=== PATIENT | male | born 1965 | race Caucasian/White ===

== ENCOUNTER 2024-07-05 12:20 | Emergency (ER) | payer BC, SELFPAY ==
[2024-07-05 12:20] VITALS: BMI 19.5
[2024-07-05 13:06] VITALS: BP 134/80; PULSE 86; RESP 20; TEMP 36.5; O2SAT 95
--- NOTE | 2024-07-05 13:22 | XR_ITS ---
Examination: Hand, left 3 views Technique: Hand AP, oblique, lateral 3 views Date and time of exam: July 05, 2024 1335 hrs. Indications: Dog bite today to the hand, hand pain Findings: No acute fracture No foreign body No dislocation Impression: No opaque foreign body
--- NOTE | 2024-07-05 14:28 | EDNOTE_ITS ---
Upper Extremity Injury RME/HPI General Chief Complaint: Hand/Wrist Problems Stated Complaint: LEFT HAND DOG BITE TODAY Time Seen by Provider: 07/05/24 13:02 Arrival date/time: 07/05/24 12:20 This is a 59-year-old male that comes into the hospital with complaints of a dog bite to the left hand. Patient has a large laceration to the dorsal hand and in between first and second digit. Patient reports tetanus shot is up-to-date patient reports a history of high blood pressure. Related Data Home Medications ?Medication ?Instructions ?Recorded ?Confirmed lisinopril 10 mg tablet 10 mg PO QDAY 12/30/17 03/20/24 montelukast 10 mg tablet 10 mg PO QPM 03/20/24 03/20/24 Previous Rx's ?Medication ?Instructions ?Recorded amoxicillin 875 mg-potassium 1 tab PO BID #14 tabs 07/05/24 clavulanate 125 mg tablet hydrocodone 5 mg-acetaminophen 325 1 tab PO Q8H PRN pain #10 tabs 07/05/24 mg tablet ibuprofen 800 mg tablet 800 mg PO Q6H PRN pain #14 tabs 07/05/24 Allergies Allergy/AdvReac Type Severity Reaction Status Date / Time No Known Allergies Allergy Verified 07/05/24 12:22 Review of Systems Review of Systems Systems Reviewed: All systems reviewed, normal except as documented Past Medical History Past Medical History CARDIAC: Positive Hypertension; Negative Cardiac Disorders or Congestive Heart Failure RESPIRATORY: Positive Asthma; Negative Chronic Obstructive Pulmonary Disease (COPD) GENITOURINARY: Negative Renal Disease ENDOCRINE: Negative Endocrine Disorders, Diabetes Mellitus Type 1 or Diabetes Mellitus Type 2 HEMATOLOGIC: Negative Sickle Cell Disease Social History SMOKING STATUS: Light (< 1 pack/day) SUBSTANCE USE: does not use Travel History EBOLA RISK: No ED Exam General General appearance: Present alert and in no apparent distress Head Head exam: Present atraumatic Eye Eye exam: Present normal appearance, PERRL and EOMI ENT ENT exam: Present normal exam, normal oropharynx and mucous membranes moist Neck Neck exam: Present normal inspection, full ROM and trachea midline Chest Chest inspection: Present normal inspection and symmetric chest wall rise Respiratory Respiratory exam: Present normal lung sounds bilaterally Cardiovascular Cardiovascular exam: Present regular rate and normal rhythm Abdominal Exam Abdominal exam: Present soft Extremities Exam Extremities exam: Present normal inspection and full ROM Back Exam Back exam: Present normal inspection and full ROM Neurological Exam Neurological exam: Present alert and oriented X3 Psychiatric Psychiatric exam: Present normal affect and normal mood Skin Skin exam: Present warm, dry and other (left hand laceration to dorsal hand and inbetween 1st and second digit. ) Course Quality Measures none Orders Category Date Time Status XR hand LT 2V Stat Exams 07/05/24 13:22 Completed Amoxicillin/Pot Clav 875 [Augmentin 875] Med 07/05/24 14:26 Discontinued 1 tab PO X1 ONE HYDROcodone*/APAP 5/325 [Slater 5/325] Med 07/05/24 14:26 Discontinued 1 tab PO X1 ONE Lidocaine 1% Pf 5 ml [Xylocaine 1% Pf 5 ml] Med 07/05/24 14:30 Discontinued 10 ml INFL X1 ONE Ondansetron Odt [Zofran Odt] Med 07/05/24 14:26 Discontinued 4 mg PO X1 ONE Vital Signs Vital signs: Vital Signs Temperature 97.7 F 07/05/24 13:06 Pulse Rate 86 07/05/24 13:06 Respiratory Rate 20 07/05/24 13:06 Blood Pressure 134/80 H 07/05/24 13:06 Pulse Oximetry (%) 95 07/05/24 13:06 Oxygen Delivery Method Room Air 07/05/24 13:06 Procedures -ED Laceration Laceration 1: Site: other (laceration to dorsal hand approx 3cm and small lac inbetween 1st and second digit) Side (If applicable): left Size (cm): 3 Description: irregular Depth: simple, single layer Local Anesthetic: lidocaine 1% Amount of anesthesia used (mL): 5 Pre-repair: wound explored and irrigated extensively Skin layer closed with: nylon Size (cm): 3-0 Number of sutures: 7 Technique: simple, interrupted Extremity Injury MDM Narrative MDM Narrative:: Pt wound cleansed and sutured. Pt tolerated procedure well. Patient data External records reviewed:: [facility] previous records Clinical information provided by:: patient Social determinants that could affect healthcare access:: none Patient has the following chronic illnesses:: none How is presenting disease/condition affected by chronic disease/condition?: no chronic disease Evaluation data The following diagnostics were reviewed and interpreted by me:: radiology exam(s) Lab and/or radiology exams considered but not ordered:: none Interpretation Summary: none Medications / Prescriptions Medications or Prescriptions considered but not ordered:: none Medication administrations:: Medication Administration History Discontinued Medications Hydrocodone Bitart/Acetaminophen (Hydrocodone/Apap 5/325 Tablet) 1 tab PO X1 ONE Stop: 07/05/24 14:27 Last Admin: 07/05/24 14:47 Dose: 1 tab Documented By: Amoxicillin/Clavulanate Potassium (Amoxicillin/Pot Clav 875 Tablet) 1 tab PO X1 ONE Stop: 07/05/24 14:27 Last Admin: 07/05/24 14:47 Dose: 1 tab Documented By: Lidocaine HCl (Lidocaine Inj Pf 1% 5 Ml Vial) 10 ml INFL X1 ONE Stop: 07/05/24 14:31 Last Admin: 07/05/24 14:47 Dose: 10 ml Documented By: Ondansetron HCl (Ondansetron Odt 4 Mg Tabrap) 4 mg PO X1 ONE; Protocol Stop: 07/05/24 14:27 Last Admin: 07/05/24 14:47 Dose: 4 mg Documented By: see mar Consultations Consultation(s) initiated? (list below): No Diagnosis Upper Extremity Injury Differential Diagnosis: other (laceration, abrasion, cellulitis ) Most likely diagnosis given after review of the tests above:: lacertaion Admission Indicated Admission indicated?: not indicated Admission Request Was there a request for admission?: No Disposition Plan Disposition Plan: Discharge Discharge Attestation Discharge Attestation: The patient and all family members were given an opportunity to ask questions and understood the discharge instructions. Discharge instructions specifically effects, indications for sooner follow up or return to the emergency department, and the expected course of current diagnosis. Patient condition: Stable Discharge Plan Plan Patient Disposition: HOME (Self Care) Patient condition on transfer: Stable Prescriptions/Referrals Prescriptions/Med Rec: New ibuprofen 800 mg tablet 800 mg PO Q6H PRN (Reason: pain) Qty: 14 0RF hydrocodone-acetaminophen 5-325 mg tablet 1 tab PO Q8H MDD 3 PRN (Reason: pain) Qty: 10 0RF amoxicillin-pot clavulanate 875-125 mg tablet 1 tab PO BID Qty: 14 0RF No Action lisinopril 10 mg Tablet 10 mg PO QDAY montelukast 10 mg Tablet 10 mg PO QPM Referrals: Jesse Fernandez MD [Primary Care Provider] - In 1 week Problem List Clinical Impression: Dog bite, Laceration Patient/Caregiver Discharge Instructions Discharge Activity: activity as tolerated Education Materials: ED Dog Bite, ED Laceration, Hand: All Closures Additional Instructions: May have sutures removed in 7 to 10 days. come back to the emergency room if symptoms change or worsen. Print Language: Kiswahili Stand Alone Forms: Winter Award Info., Patient Portal Info Letter PA/UNDERGRADUATE INTERN Supervising Physician PA/UNDERGRADUATE INTERN Supervising Physician: patel
[2024-07-05] MEDS: AMOXICILLIN/POT CLAV 875 TABLET 1 TAB PO (14:47)
[2024-07-05] MEDS: HYDROcodone/APAP 5/325 TABLET 1 TAB PO (14:47)
[2024-07-05] MEDS: ONDANSETRON ODT 4 MG TABRAP PO (14:47)
[2024-07-05] MEDS: LIDOCAINE INJ PF 1% 5 ML VIAL 10 ML INFL (14:47)
== END 2024-07-05 15:55 | disposition home or self-care (01) ==
PROVIDERS: Emergency Provider Emergency Medicine; PCP Family Medicine
DX: S61.412A Laceration without foreign body of left hand, initial encounter (principal); W54.0XXA Bitten by dog, initial encounter
CPT/HCPCS: 73120; 99283; J3490; Q0162; A9270